=== PATIENT | male | born 1990 | race Caucasian/White ===

== ENCOUNTER 2021-06-24 12:08 | Emergency (ER) | payer BC, OTHER ==
--- NOTE | 2021-06-24 12:45 | EDM.PDOC ---
ED HPI GENERAL MEDICAL PROBLEM - General Chief Complaint: Upper Extremity Injury/Pain Stated Complaint: INJURED RIGHT HAND Time Seen by Provider: 06/24/21 12:27 Source of Information: Reports: Patient History Limitations: Reports: No Limitations - History of Present Illness INITIAL COMMENTS - FREE TEXT/NARRATIVE: 30 yo male presents to ER with injury to his right hand. He was moving a vending machine and smashed his hand between ceiling and machine. puncture injury to digit 4. He does have pain in digits but able to move them, denies pain in the hand. generally healthy. he is not updated on tetanus and he does not desire a tetanus vaccination - Related Data Allergies Allergy/AdvReac Type Severity Reaction Status Date / Time No Known Allergies Allergy Verified 06/24/21 12:24 Home Meds: Home Meds NK [No Known Home Meds] 12/09/14 [History] Past Medical History - Past Health History Medical/Surgical History: Denies Medical/Surgical History Social & Family History - Tobacco Use Tobacco Use Status *Q: Current Every Day Tobacco User Years of Tobacco use: 15 Packs/Tins Daily: 3 Review of Systems - Review of Systems Review Of Systems: See Below Constitutional: Denies: Chills, Fever Respiratory: Denies: Shortness of Breath, Wheezing Cardiovascular: Denies: Chest Pain Musculoskeletal: Reports: Hand Pain ED EXAM, GENERAL - Physical Exam Exam: See Below Exam Limited By: No Limitations General Appearance: Alert, WD/WN, No Apparent Distress Respiratory/Chest: No Respiratory Distress Extremities: Other (right hand pain in digits 3 and 4, puncture laceration to finger 4th digit over PIP joint) Course - Vital Signs Last Recorded V/S: Last Vital Signs Temp 36.7 C 06/24/21 12:31 Pulse 81 06/24/21 12:31 Resp 17 06/24/21 12:31 BP 132/79 06/24/21 12:31 Pulse Ox 97 06/24/21 12:31 - Orders/Labs/Meds Orders: Active Orders 24 hr Category Date Time Status Fingers Multiple Rt [CR] Stat Exams 06/24/21 12:39 Taken - Re-Assessments/Exams Free Text/Narrative Re-Assessment/Exam: 06/24/21 13:28 30 yo male evaluated on arrival to ER in no acute distress. bleeding from wound controlled x-ray of fingers no acute osseous findings. wound examined and cleaned borderline need for closure. pt does not desire sutures for closure. 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 wound was cleaned and bandaged by nursing. Departure - Departure Time of Disposition: 13:31 Disposition: Home, Self-Care 01 Condition: Good Clinical Impression: Crush injury to finger Qualifiers: Encounter type: initial encounter Qualified Code(s): S67.10XA - Crushing injury of unspecified finger(s), initial encounter Finger laceration Qualifiers: Encounter type: initial encounter Finger: ring finger Damage to nail status: without damage Foreign body presence: without foreign body Laterality: right Qualified Code(s): S61.214A - Laceration without foreign body of right ring finger without damage to nail, initial encounter - Discharge Information *PRESCRIPTION DRUG MONITORING PROGRAM REVIEWED*: Not Applicable *COPY OF PRESCRIPTION DRUG MONITORING REPORT IN PATIENT JOSE MANUEL: Not Applicable Referrals: PCP,None [Primary Care Provider] - Forms: ED Department Discharge Additional Instructions: keep laceration clean and covered until healed ice for pain as needed Sepsis Event Note (ED) - Evaluation Sepsis Screening Result: No Definite Risk - Focused Exam Vital Signs: Vital Signs Temp Pulse Resp BP Pulse Ox 06/24/21 12:31 36.7 C 81 17 132/79 97 06/24/21 12:25 36.7 C 81 17 132/79 97 - My Orders Last 24 Hours: My Active Orders 06/24/21 12:39 Fingers Multiple Rt [CR] Stat - Assessment/Plan Last 24 Hours: My Active Orders 06/24/21 12:39 Fingers Multiple Rt [CR] Stat
[2021-06-24] MEDS ORDERED: Bacitracin Oint 1 GM U/D Packet TOP ONE (13:33)
--- NOTE | 2021-06-25 10:45 | CR ---
Fingers Multiple Rt CLINICAL HISTORY: Crush injury FINDINGS: There is a periarticular fracture through the base of what appears to be the third middle phalanx on the lateral view only IMPRESSION: Fracture through base of third middle phalanx
== END 2021-06-24 13:45 | disposition home or self-care (01) ==
LOC: JP.ED 12:08
DX: S67.194A Crushing injury of right ring finger, initial encounter (principal); S61.234A Puncture wound without foreign body of right ring finger without damage to nail, initial encounter; Z72.0 Tobacco use; W23.0XXA Caught, crushed, jammed, or pinched between moving objects, initial encounter
CPT/HCPCS: 73140-26-RT; 73140-RT; 99283-25

== ENCOUNTER 2022-11-29 18:52 | Emergency (ER) | payer SELFPAY ==
[2022-11-29 19:46] LABS: ESTIMATED GFR 103 mL/min (>60); TROPONIN I HIGH SENSITIVITY 5.2 pg/mL (<=60.3)
[2022-11-29] MEDS ORDERED: Ibuprofen 600 MG Tab PO ONE (20:52)
== END 2022-11-29 21:16 | disposition home or self-care (01) ==
LOC: JP.ED 18:52
DX: R07.89 Other chest pain (principal); F17.210 Nicotine dependence, cigarettes, uncomplicated
CPT/HCPCS: 36415; 71045; 80053; 84484; 85025; 93005; 99284